=== PATIENT | female | born 1965 | race Caucasian/White ===

== ENCOUNTER → 2018-01-17 08:19 | Outpatient (CLI) | payer OTHER, SELFPAY ==
--- NOTE | 2018-01-17 08:22 | MM_ITS ---
MM Dig screening mamm BI w/CAD CAD Screening COMPARISON: MM Dig screening mamm BI w/CAD CAD Screening COMPARISON: Digital mammograms 05/21/2014 and 02/05/2013 INDICATION: There is no personal or family history of breast cancer TECHNIQUE: Standard CC and MLO images were obtained. R2 CAD reviewed. FINDINGS: Prominent diffuse heterogenic fibroglandular densities are seen in both breasts slightly more prominent left breast the right. There are scattered benign-appearing calcifications left breast. There is no suspicious lesion and there are no suspicious microcalcifications. IMPRESSION: Diffusely dense parenchymal pattern with no suspicious lesion seen BI-RADS Category: 2 Benign Finding(s) RECOMMENDED FOLLOW-UP: 1YR - 1 YEAR FOLLOW-UP (A letter has been sent to the patient regarding results of the study.)
== END ==
PROVIDERS: Family Provider Family Medicine; PCP Family Medicine; Visit Provider Family Medicine
DX: Z12.31 Encounter for screening mammogram for malignant neoplasm of breast (principal); N60.11 Diffuse cystic mastopathy of right breast; N60.12 Diffuse cystic mastopathy of left breast
CPT/HCPCS: 77067

== ENCOUNTER → 2020-01-21 10:20 | Outpatient (CLI) | payer OTHER, SELFPAY ==
[2020-01-21 11:37] LABS: Basophils % 0.5 % (0.1-2.0); Eosinophils % 0.8 % (0.1-12.0); Hematocrit 41.8 % (37.0-47.0); Hemoglobin 13.5 g/dL (12.2-16.2); Lymphocytes # 1.3 K/mm3 (0.7-4.5); Lymphocytes % 28.7 % (10-50); Mean Corpuscular HGB Conc 32.3 g/dL (31.8-35.4); Mean Corpuscular Hemoglobin 30.5 pg (27.0-31.2); Mean Corpuscular Volume 94.4 fl (81-99); Mean Platelet Volume 8.3 fl (7.4-10.4); Monocytes # 0.2 K/mm3 (0.1-1.0); Monocytes % 4.8 % (1.7-9.3); Neutrophils # 2.8 K/mm3 (1.8-7.8); Neutrophils % 65.1 % (37.0-80.0); Platelet Count 283 K/mm3 (142-424); Red Blood Count 4.43 M/mm3 (4.20-5.40); Red Cell Distribution Width 14.1 % (11.5-17.5); White Blood Count 4.3 K/mm3 (4.8-10.8)
[2020-01-21 12:04] LABS: Alanine Aminotransferase 14 U/L (12-78); Albumin Level 4.8 g/dl (3.5-5.0); Albumin/Globulin Ratio 1.5 (1.1-1.8); Alkaline Phosphatase 115 U/L (38-126); Aspartate Amino Transferase 34 U/L (14-36); Bilirubin,Total 0.5 mg/dl (0.2-1.3); Blood Urea Nitrogen 19 mg/dl (7-17); Calcium 11.1 mg/dl (8.4-10.2); Carbon Dioxide 30 mmol/L (22.0-30.0); Chloride 99 mmol/L (98-107); Chol/HDL Ratio 2.2 (1-3.5); Cholesterol 220 mg/dl (140-200); Estimated Glomerular Filt Rate 88 ml/min (>60); GFR (African American) 106 ML/MIN (>60); Globulin 3.1 g/dL (1.3-3.2); Glucose 106 mg/dl (74-100); HDL Cholesterol 100 mg/dl (40-60); Sodium 136 mmol/L (136-145); Total Protein,Serum 7.9 g/dl (6.3-8.2); Triglycerides 61 mg/dl (30-150); VLDL Cholesterol 12 mg/dL (0-40)
[2020-01-21 12:14] LABS: Direct LDL Cholesterol 101.74 mg/dL (100-129)
[2020-01-21 12:20] LABS: 25-OH Vitamin D, Total 35.4 ng/mL (30-100)
[2020-01-21 12:33] LABS: Thyroid Stimulating Hormone 2.43 uIU/mL (0.465-4.68)
[2020-01-21 22:54] LABS: Hemoglobin A1C 5.4 % (4.0-6.0)
[2020-01-22 12:45] LABS: Vitamin B12 342 pg/mL (232-1245)
== END ==
PROVIDERS: Visit Provider Nurse Practitioner Family
DX: R53.83 Other fatigue (principal); Z13.29 Encounter for screening for other suspected endocrine disorder; Z13.1 Encounter for screening for diabetes mellitus
CPT/HCPCS: 36415; 80053; 80061; 82306; 82607; 83036; 84443; 85025

== ENCOUNTER → 2020-01-27 10:39 | Outpatient (CLI) | payer OTHER, SELFPAY ==
--- NOTE | 2020-01-27 10:44 | MM_ITS ---
PROCEDURE: MM DIG SCREENING MAMM BI W/CAD Digital Breast Tomosynthesis Included CLINICAL INDICATION: SCREENING There is no personal or family history of breast cancer. There has been a previous biopsy left breast for benign disease. COMPARISON: [facility] DIG MAMM-SCREEN MELISSA from 02/05/2013 [facility] DIG MAMM-SCREEN MELISSA from 05/21/2014 [facility] MM Dig screening mamm BI w/CAD from 01/17/2018 TECHNIQUE: Standard CC and MLO images and 3D Tomosynthesis was obtained. R2 CAD reviewed. FINDINGS: Scattered fibroglandular densities are seen in both breast again slightly more prominent left breast than right. There are few benign-appearing microcalcifications left breast most of which appear typical of sclerosing adenosis. There is a tiny benign-appearing nodular density outer quadrant right breast. IMPRESSION: Fibrofatty parenchyma with no suspicious lesions seen BI-RAD Category: 2 Benign Finding(s) FOLLOW-UP: 1YR 1 Year Follow-up (A letter has been sent to the patient regarding results of the study.) Dictated by: Dr. Shalom Napier MD 01/30/2020 09:[address] Shalom Napier MD in [place] 01/30/2020 09:30
== END ==
PROVIDERS: PCP Family Medicine; Visit Provider Family Medicine
DX: Z12.31 Encounter for screening mammogram for malignant neoplasm of breast (principal)
CPT/HCPCS: 77063; 77067

== ENCOUNTER 2020-11-17 17:08 | Emergency (ER) | payer BC, SELFPAY ==
[2020-11-17 17:28] VITALS: BP 125/78; PULSE 66; RESP 18; TEMP 36.5; O2SAT 98; BMI 30.6
[2020-11-17 17:59] LABS: Apearance,Urine Clear (Clear); Bilirubin,Urine Negative (Negative); Blood, Urine Negative (Negative); Color,Urine Yellow (Yellow); Glucose,Urine (UA) Negative (Negative); Ketones,Urine Negative (Negative); PH,Urine 6.5 (5.0-8.5); Protein,Urine Negative (Negative)
[2020-11-17 18:00] LABS: UTC Leukocyte Esterase,Urine 1+ (Negative); UTC Nitrate,Urine Positive (Negative); Urobilinogen,Urine 0.2 EU/dl (0.2)
--- NOTE | 2020-11-17 18:02 | HMH.EDUTC ---
[facility] [place] [facility] [place] Clinical Impression: UTI (urinary tract infection) Qualifiers: Urinary tract infection type: site unspecified Hematuria presence: without hematuria Qualified Code(s): N39.0 - Urinary tract infection, site not specified Disposition: Home, Self-Care Condition on Discharge: Good Instructions: Urinary Tract Infection, DI for Urinary Tract Infection (UTI), Nitrofurantoin, Phenazopyridine Additional Instructions: *Increase fluids. Water not Soda or Tea *Start antibiotic immediately and be sure to take as ordered for the FULL length of time although you should start to see improvement over the next 48 hours *Pyridium as needed Remember this medication will turn your urine [place]. This is normal but it will stain what ever it gets on *You should not use Pyridium for more than 48 hours. If so , follow up with your primary physician to review urine culture and ensure that antibiotic is adequate for infection *Be SURE to follow up anytime for new or worsening symptoms with your family doctor. AND in 48 hours for urine culture results with your family doctor, if you do not have a doctor then you may call back to the [facility] for urine culture results and further treatment. We do recommend that you choose and establish care with a Primary Care Physician. AND follow up with them in 10-14 days to repeat UA to ensure infection is resolved and blood no longer present *Be sure to let your PCP know that we sent urine cultures from the [facility] so they can follow up to ensure that you area the on the correct antibiotic Call your doctor office and make appointment for 48 hours (2 days from today) to follow up and get the results of your urine culture and further treatment Return if needed Make sure to follow up to make sure you are on correct medication Straight to ER if any life threatening symptoms Prescriptions: Nitrofurantoin Monohyd/M-Cryst [Macrobid 100 mg Capsule] 100 mg PO BID 10 Days #20 cap Transmission Status: Pending to [facility] Phenazopyridine HCl [Pyridium 200mg Tablet] 200 pow PO TID #6 tab Transmission Status: Pending to [facility] Referrals: Darius Blevins MD [Primary Care Provider] - As needed Time of Disposition: 18:10 Medical Decision Making - Talha Inquiry Pt receiving controlled substance: No Talha was queried for this patient: No Vital Signs: 11/17/20 17:28 Temperature 97.7 F Temperature Source Oral Pulse Rate [Right Brachial] 66 Respiratory Rate 18 Blood Pressure [Right Arm] 125/78 Blood Pressure Mean [Right Arm] 93 Blood Pressure Source [Right Arm] Automatic Cuff Blood Pressure Position [Right Arm] Sitting 02 Sat by Pulse Oximetry 98 Oxygen Delivery Method Room Air - Lab Data Lab results reviewed: Yes: I reviewed the patient's lab results. Lab Results 11/17/20 17:17: Urine Color Yellow, Urine Appearance Clear, Urine pH 6.5, Ur Specific [place] 1.020, Urine Protein Negative, Urine Glucose (UA) Negative, Urine Ketones Negative, Urine Blood Negative, Urine Nitrate Positive A, Urine Bilirubin Negative, Urine Urobilinogen 0.2, Ur Leukocyte Esterase 1+ A Orders (Tests/Meds): ORDERS Category Date Time Status Urine Culture Stat Micro 11/17/20 17:32 Ordered [facility] [place] [facility] [place]PI - General Stated complaint: possible UTI Time Seen by Provider: 11/17/20 18:02 Mode of Arrival: Ambulatory Source of Information: Patient Limitations: No Limitations Description of Symptoms (Recalled from Triage Doc. by RN): UTI symptoms, burning and frequent urination. HEENT Symptoms (Recalled from RN notes): No Resp Symptoms (Recalled from RN notes): No Skin Symptoms (Recalled from RN notes): Yes MS Symptoms (Recalled from RN notes): No Functional Status (Recalled from RN notes): wnl - History of Present Illness Provider Complaint: Patient states that she has been having burning with urination, feeling of urgency and frequency States that she had a UTI about a month ago and finished her medication
[2020-11-17 19:01] VITALS: BP 125/78; PULSE 66; RESP 18; TEMP 36.5; O2SAT 98
== END 2020-11-17 18:11 | disposition home or self-care (01) ==
PROVIDERS: Emergency Provider Nurse Practitioner; PCP Family Medicine
DX: N30.00 Acute cystitis without hematuria (principal); A49.8 Other bacterial infections of unspecified site; Z87.891 Personal history of nicotine dependence
CPT/HCPCS: 81003; 87086; 87088; 87186; 99202; G0463

== ENCOUNTER → 2021-05-27 11:42 | Outpatient (CLI) | payer BC, SELFPAY | PROVIDERS: PCP Family Medicine; Visit Provider Physician Assistant | DX: R06.83 Snoring (principal) | CPT/HCPCS: G0399 ==

== ENCOUNTER → 2021-06-14 13:31 | Outpatient (POV) | payer BC, SELFPAY | PROVIDERS: Visit Provider Dermatology | DX: Z00.00 Encounter for general adult medical examination without abnormal findings (principal) ==

== ENCOUNTER 2021-06-22 09:54 | Emergency (ER) | payer BC, SELFPAY ==
[2021-06-22 10:13] VITALS: BP 147/97; PULSE 75; RESP 19; TEMP 37.1; O2SAT 97; BMI 30.9
[2021-06-22 10:20] LABS: UTC Strep Screen (Rapid) Negative (Negative)
--- NOTE | 2021-06-22 10:40 | HMH.EDUTC ---
[facility] – [place] Disposition Clinical Impression: Bronchitis Pharyngitis Qualifiers: Pharyngitis/tonsillitis etiology: unspecified etiology Qualified Code(s): J02.9 - Acute pharyngitis, unspecified Disposition: Home, Self-Care Condition on Discharge: Good Instructions: DI for Acute Bronchitis, DI for Pharyngitis/Tonsillopharyngitis -- Adult Additional Instructions: Drink plenty of fluids. Take tylenol or ibuprofen for pain or fever. Take the medications as directed. Follow up with your regular doctor. GO TO THE ER FOR ANY WORSENING SYMPTOMS The cough medication (promethazine dm) will make you drowsy, so don't drive or operate heavy machinery after taking it. Prescriptions: Promethazine/Dextromethorphan [Promethazine-Dm Syrup] 5 ml PO Q6HP PRN #240 ml PRN Reason: Cough Transmission Status: Pending to [facility] methylPREDNISolone [Medrol] 4 mg PO DIRECTED 6 Days #21 packet Transmission Status: Pending to [facility] guaiFENesin [Mucinex 600mg tablet] 1 - 2 tab PO BIDP PRN #30 tab PRN Reason: Congestion Transmission Status: Pending to [facility] Azithromycin [Z-Eric 250mg Tab*] 250 mg PO UD DOSE PK #6 tab Transmission Status: Pending to [facility] Referrals: Darius Blevins MD [Primary Care Provider] - Time of Disposition: 10:44 Medical Decision Making - Medical Records Medical records reviewed: No: I reviewed the patient's medical records. - Talha Inquiry Pt receiving controlled substance: No Vital Signs: 06/22/21 10:13 Temperature 98.8 F Temperature Source Oral Pulse Rate [Left] 75 Respiratory Rate 19 Blood Pressure [Right Arm] 147/97 H Blood Pressure Mean [Right Arm] 113 02 Sat by Pulse Oximetry 97 - Lab Data Lab results reviewed: Yes: I reviewed the patient's lab results. Lab Results 06/22/21 10:17: Strep Scn Rapid Clinic Negative Orders (Tests/Meds): ORDERS Category Date Time Status Strep Screen Confirmation Routine Micro 06/22/21 10:17 Received [facility] [place] HPI - General Stated complaint: sore throat, cough, soa, runny nose, headache Time Seen by Provider: 06/22/21 10:40 Mode of Arrival: Ambulatory Source of Information: Patient Limitations: No Limitations Description of Symptoms (Recalled from Triage Doc. by RN): pt c/o a cough and sore throat since 06/19 HEENT Symptoms (Recalled from RN notes): Yes (sore throat) Resp Symptoms (Recalled from RN notes): Yes (cough) Skin Symptoms (Recalled from RN notes): No MS Symptoms (Recalled from RN notes): No Functional Status (Recalled from RN notes): wnl - History of Present Illness Provider Complaint: She c/o sore throat, sinus congestion and a productive cough for the past 3 days. She denies any fever or body aches. She has felt very bad also. This morning, she started having a hoarse voice also. - Related Data Previous Rx's Medication Instructions Recorded zolpidem 5 mg tablet 5 mg PO HS PRN #2 tab 06/09/21 Azithromycin [Z-Eric 250mg Tab*] 250 mg PO UD DOSE PK #6 tab 06/22/21 Promethazine/Dextromethorphan 5 ml PO Q6HP PRN #240 ml 06/22/21 [Promethazine-Dm Syrup] guaiFENesin [Mucinex 600mg tablet] 1 - 2 tab PO BIDP PRN #30 tab 06/22/21 methylPREDNISolone [Medrol] 4 mg PO DIRECTED 6 Days #21 06/22/21 packet Allergies Allergy/AdvReac Type Severity Reaction Status Date / Time Codeine Allergy Unknown Uncoded 03 17:28 Penicillin Allergy Unknown Uncoded 10/01/20 17:28 - Worker's Comp Is this a Worker's Comp case?: No [facility] History - Hepatitis A Screen Drug use history?: No High risk sexual behaviors?: No History of sexually transmitted infection?: No Currently employed?: No Childcare worker?: No Do you have indoor plumbing?: Yes Do you have electricity?: Yes Attestation statement:: This patient has been screened for Hepatitis A risk factors. I have reviewed the patient's past medical history: Yes Other Surgeries: Yes: - Social H
[2021-06-22 11:03] VITALS: BP 147/97; PULSE 75; RESP 19; TEMP 37.1
== END 2021-06-22 11:05 | disposition home or self-care (01) ==
PROVIDERS: Emergency Provider Nurse Practitioner Family; PCP Family Medicine
DX: J20.9 Acute bronchitis, unspecified (principal); J02.9 Acute pharyngitis, unspecified; Z87.891 Personal history of nicotine dependence
CPT/HCPCS: 87880; 99202; G0463

== ENCOUNTER → 2021-06-29 13:18 | Outpatient (CLI) | payer BC, SELFPAY ==
--- NOTE | 2021-06-29 13:21 | MM_ITS ---
PROCEDURE INFORMATION: Exam: MG Bilateral Screening 3D Mammography Exam date and time: 06/29/2021 1:21 PM Age: 55 years old Clinical indication: screening mammogram TECHNIQUE: Imaging protocol: Bilateral screening tomosynthesis and 2D mammography including computer-aided detection (CAD) when performed. COMPARISON: 01/27/2020, 01/17/2018, 05/21/2014, 02/05/2013 FINDINGS: MAMMOGRAPHY: Breast composition: The breast tissue is heterogeneously dense, which may obscure small masses. Mass: None. Architectural distortion: No new or suspicious architectural distortion. Calcifications: Stable benign-appearing calcifications are present. No new or suspicious cluster of microcalcifications have developed. Asymmetric density: No new or suspicious asymmetric density is present Skin thickening: None. Axillary adenopathy: None. IMPRESSION: No mammographic evidence of malignancy. Recommend annual screening mammography unless otherwise clinically indicated. ASSESSMENT: BI-RADS category 2: Benign
== END ==
PROVIDERS: PCP Family Medicine; Visit Provider Family Medicine
DX: Z12.31 Encounter for screening mammogram for malignant neoplasm of breast (principal)
CPT/HCPCS: 77063; 77067

== ENCOUNTER 2021-08-21 11:01 | Emergency (ER) | payer BC, SELFPAY ==
[2021-08-21 13:59] VITALS: BP 151/100; PULSE 76; RESP 18; TEMP 36.8; O2SAT 98; BMI 31.1
--- NOTE | 2021-08-21 14:02 | HMH.EDUTC ---
[facility] [place] Disposition Clinical Impression: Strep throat Disposition: Home, Self-Care Condition on Discharge: Good Instructions: Sore Throat, DI for COVID-19 (Suspected or Confirmed ), Preventing the Spread of Coronavirus Discharge Instructions Additional Instructions: *Monitor Temp, Over the counter Motrin or Tylenol as directed/as needed Tylenol every 4 hours and Motrin every 6 hours (as long as your family doctor has told you that you can take it) for fever or pain. and straight to ER if unable to lower temp less than 101.0 after medication given *Warm salt water gargles may help to soothe the throat *Throat Lozenges *Warm fluids like tea with honey may help to soothe the throat *Sleep elevated *Humidifier/Vaporizer Your throat swab was sent for culture. Those results are typically sent to your primary care. Be sure to follow up in 2-3 days with your family doctor/primary care physician if no improvement so they can review those result and treat if necessary. If you don?t have a primary care doctor, I recommend you get one but in the mean time, you will have to return to a walk in clinic Follow up IMMEDIATELY for new or worsening symptoms or no Noticeable improvement over the next 48-72 hours. 911 for difficulty breathing or swallowing You were tested for today for COVID19 your test result should be back in the next 24-48 hours, you may check your results on the [facility] My Health Portal if you have trouble logging on you may call [employer] support for assistance You was given a handout with instructions for Self Quarantine and Self isolation for while you wait on test results and what to do if they are positive If you are positive the Health Dept will be contacting you also Make sure to take your Vitamins Vit. C Vit D and Zinc if you can take them Prescriptions: methylPREDNISolone [Medrol 4mg tab] 4 mg PO DIRECTED #21 tab Transmission Status: Pending to [facility] Azithromycin [Z-Eric 250mg Tab] 250 mg PO DIRECTED #6 tab Transmission Status: Pending to [facility] Referrals: Darius Blevins MD [Primary Care Provider] - As needed Forms: Work/School Release Time of Disposition: 14:51 Medical Decision Making - Talha Inquiry Pt receiving controlled substance: No Talha was queried for this patient: No Vital Signs: 08/21/21 13:59 Temperature 98.2 F Temperature Source Oral Pulse Rate [Left] 76 Respiratory Rate 18 Blood Pressure [Right Arm] 151/100 H Blood Pressure Mean [Right Arm] 117 02 Sat by Pulse Oximetry 98 - Lab Data Lab results reviewed: Yes: I reviewed the patient's lab results. Lab Results 08/21/21 13:50: Group A Strep Rapid Positive A Orders (Tests/Meds): ORDERS Category Date Time Status Covid-19 Nasal PCR ([facility]) Routine Lab 08/21/21 13:50 Received Medical Decision Narrative: Patient states that she has taken azithromycin and Medrol in the past without reactions or complications [facility] [place] HPI - General Stated complaint: possible strep Time Seen by Provider: 08/21/21 14:02 Mode of Arrival: Ambulatory Source of Information: Patient Limitations: No Limitations Description of Symptoms (Recalled from Triage Doc. by RN): pt c/o a sore throat, cough and body aches x4 days. HEENT Symptoms (Recalled from RN notes): Yes (sore throat) Resp Symptoms (Recalled from RN notes): Yes (cough) Skin Symptoms (Recalled from RN notes): No MS Symptoms (Recalled from RN notes): No Functional Status (Recalled from RN notes): wnl - History of Present Illness Provider Complaint: Patient states that she has been having sore throat, body aches and headache for about 4 days States that she thinks she may have strep throat so she came in to get tested - Related Data Previous Rx's Medication Instructions Recorded zolpidem 5 mg tablet 5 mg PO HS PRN #2 tab 06/09/21 Azithromycin [Z-Eric 250mg Tab*] 250 mg PO UD DOSE PK #6 tab 06/22/21 Promethazine/Dextromethorphan 5 ml PO Q6HP PRN #240 ml 1
[2021-08-21 14:48] LABS: Strep Scrn Group A (Rapid) Positive (Negative)
[2021-08-21 14:55] VITALS: BP 151/100; PULSE 76; RESP 18; TEMP 36.8
[2021-08-21 16:54] LABS: UTC Influenza A Antigen Negative (Negative); UTC Influenza B Antigen Negative (Negative)
== END 2021-08-21 14:56 | disposition home or self-care (01) ==
PROVIDERS: Emergency Provider Nurse Practitioner; PCP Family Medicine
DX: J02.0 Streptococcal pharyngitis (principal); Z87.891 Personal history of nicotine dependence; U07.1 COVID-19
CPT/HCPCS: 87430; 87804; 99203; C9803; G0463; U0003; U0005

== ENCOUNTER 2022-07-30 11:02 | Emergency (ER) | payer BC, SELFPAY ==
[2022-07-30 11:35] VITALS: BP 144/84; PULSE 88; RESP 20; TEMP 36.7; O2SAT 99; BMI 29.6
--- NOTE | 2022-07-30 11:37 | EXP.UTC ---
Discharge Plan Disposition Patient Disposition: Home, Self-Care Condition: Good Prescriptions Prescriptions: New amoxicillin [amoxicillin] 875 mg tablet 875 mg PO Q12H Qty: 20 0RF benzonatate [benzonatate] 100 mg capsule 100 mg PO TIDP PRN (Reason: Cough) Qty: 30 0RF methylprednisolone 4 mg Tablets,Dose Pack 4 mg PO DIRECTED Qty: 21 0RF No Action zolpidem [Ambien] 5 mg tablet 5 mg PO HS PRN (Reason: pre PSG) Qty: 2 0RF Rx Instructions: Bring medication to sleep lab, notify electromyographic technician you have it. Take one tablet when directed. Repeat second tablet if needed for insomnia promethazine-DM 120 ML syrup 5 ml PO Q6HP PRN (Reason: Cough) Qty: 240 0RF azithromycin 250 MG tablet 250 mg PO UD DOSE PK Qty: 6 0RF Rx Instructions: Take two (2) tablets today, then one (1) tablet days #2 thru #5 methylprednisolone 4 MG tablets,dose pack 4 mg PO DIRECTED 6 Days Qty: 21 0RF guaifenesin 600 MG tablet extended release 12hr 1 - 2 tab PO BIDP PRN (Reason: Congestion) Qty: 30 0RF azithromycin 250 MG tablet 250 mg PO DIRECTED Qty: 6 0RF Rx Instructions: Take two (2) tablets on day #1, then one (1) tablet day #2 thru #5 methylprednisolone 4 MG tablet 4 mg PO DIRECTED Qty: 21 0RF Rx Instructions: Take as directed on package instructions Referrals Follow up/Referrals: Darius Blevins MD [Primary Care Provider] - See instructions Activity Restrictions/Add. Instructions Additional Instructions/Restrictions: Drink plenty of fluids. Take tylenol or ibuprofen for pain or fever. Take the medications as directed. Follow up with your regular doctor. GO TO THE ER FOR ANY WORSENING SYMPTOMS Don't start the oral steroids until tomorrow, since you had the shot here today. Clinical Impressions Clinical Impression: Bronchitis, Sinusitis Instructions Patient Instructions: DI for Sinusitis, DI for Acute Bronchitis Discharge ED Provider: Nadir Wynne [facility] [place] General Stated complaint: Sore throat,cough Time Seen by Provider: 07/30/22 11:37 History of Present Illness Provider Complaint: She states that for the past 5 days she has had sinus congestion, chest congestion, productive cough, and malaise. She denies fever/chills/body aches. She took a home covid-19 test yesterday and it was negative. Related Data Previous Rx's Medication Instructions Recorded zolpidem 5 mg tablet (Ambien) 5 mg PO HS PRN pre PSG #2 tabs 06/09/21 azithromycin 250 mg tablet 250 mg PO UD DOSE PK #6 tabs 06/22/21 guaifenesin 600 mg tablet, 1 - 2 tab PO BIDP PRN Congestion 06/22/21 extended release 12 hr #30 tabs methylprednisolone 4 mg tablets in 4 mg PO DIRECTED 6 days #21 06/22/21 a dose pack packets promethazine-DM 6.25 mg-15 mg/5 mL 5 ml PO Q6HP PRN Cough #240 mL 06/22/21 oral syrup azithromycin 250 mg tablet 250 mg PO DIRECTED #6 tabs 08/21/21 methylprednisolone 4 mg tablet 4 mg PO DIRECTED #21 tabs 08/21/21 amoxicillin 875 mg tablet 875 mg PO Q12H #20 tabs 07/30/22 benzonatate 100 mg capsule 100 mg PO TIDP PRN Cough #30 caps 07/30/22 methylprednisolone 4 mg tablets in 4 mg PO DIRECTED #21 tabs 07/30/22 a dose pack Allergies Allergy/AdvReac Type Severity Reaction Status Date / Time Codeine Allergy Unknown Uncoded 10/01/20 17:28 Penicillin Allergy Unknown Uncoded 10/01/20 17:28 [facility] Disclaimer: The information contained in this section may have been updated after the patient was seen, as this information can be updated by other users. Social History Smoking Status: Former smoker alcohol intake: current substance use type: denies use current occupational status: employed Travel in the last 8 weeks: None household members: spouse housing: house ROS Obtained: Yes All systems reviewed & no additional complaints except as documented Constitutional Co
[2022-07-30 11:50] LABS: UTC Strep Screen (Rapid) Negative (Negative)
[2022-07-30 11:51] LABS: UTC Influenza A Antigen Negative (Negative); UTC Influenza B Antigen Negative (Negative)
[2022-07-30 12:26] VITALS: BP 144/84; PULSE 88; RESP 20; TEMP 36.7; O2SAT 99
== END 2022-07-30 12:30 | disposition home or self-care (01) ==
PROVIDERS: Emergency Provider Nurse Practitioner Family; PCP Family Medicine
DX: J40 Bronchitis, not specified as acute or chronic (principal); J32.9 Chronic sinusitis, unspecified
CPT/HCPCS: 87804; 87880; 96372; 99212; 99213; G0463

== ENCOUNTER → 2023-04-04 16:17 | Outpatient (CLI) | payer BC, SELFPAY ==
--- NOTE | 2023-04-04 16:21 | MM_ITS ---
PROCEDURE INFORMATION: Exam: MG Bilateral Screening 3D Mammography Exam date and time: 04/04/2023 4:08 PM Age: 57 years old Clinical indication: Screening mammogram TECHNIQUE: Imaging protocol: Bilateral Screening tomosynthesis and 2D mammography including computer-aided detection (CAD) when performed. COMPARISON: 1. MG MM DIG SCREENING MAMM BI W/CAD 06/29/2021 1:18 PM 2. MG MM DIG SCREENING MAMM BI W/CAD 01/27/2020 10:49 AM 3. MG [facility] MM Dig screening mamm BI w/CAD 01/17/2018 8:32 AM 4. MG DMSB DIG MAMM-SCREEN MELISSA 05/21/2014 2:29 PM FINDINGS: MAMMOGRAPHY: Breast composition: The breast is heterogeneously dense, which may obscure small masses. Mass: None. Architectural distortion: No new or suspicious architectural distortion. Calcifications: No new or suspicious calcifications are present Asymmetric density: No new or suspicious asymmetric density is present Skin thickening: None. Axillary adenopathy: None. IMPRESSION: No mammographic evidence of malignancy. Recommend annual screening mammography unless otherwise clinically indicated. ASSESSMENT: BI-RADS category 1: Negative
== END ==
PROVIDERS: PCP Family Medicine; Visit Provider Family Medicine
DX: Z12.31 Encounter for screening mammogram for malignant neoplasm of breast (principal)
CPT/HCPCS: 77063; 77067

== ENCOUNTER 2023-07-17 10:20 | Day surgery (SDC) | payer BC, SELFPAY ==
[2023-07-16 10:02] VITALS: BMI 30.2
[2023-07-17] VITALS (10 sets, daily range): BP systolic 79–150; BP diastolic 53–97; PULSE 58–78; RESP 16–20; TEMP 36.3–36.4; O2SAT 95–100
--- NOTE | 2023-07-17 10:58 | P.PNANES_ITS ---
[facility] Disclaimer: The information contained in this section may have been updated after the patient was seen, as this information can be updated by other users. Medical History delivery delivered Surgical History History of hernia repair Family History Other Alcoholism Cancer Diabetes FHx: mental illness Hyperlipidemia Hypertension Stroke Substance abuse Social History Smoking Status: Former smoker alcohol intake: current substance use type: denies use current occupational status: employed Travel in the last 8 weeks: None household members: spouse housing: house [facility] Anesthesia Checklist Patient Identification Patient Identification: Arm Band Structural Data Admitted From: Home Planned Operative Procedure/s: Colonoscopy Consent for Planned Operative Procedure(s) Verified: Yes Verified Documents: Surgical Consent and History and Physical NPO Status Verified Time NPO: 00:00 Additional verifications Anesthesia Reactions: No Airway Assessment Mallampati Score:: Class II C-Spine Mobility Assessed: Yes TMJ Mobility Assessed: Yes Dentition: Good Dentition Neurological Assessment Level of Consciousness: Awake and Alert Anesthesia Plan Anesthesia Risk discussed: Yes Anesthesia Plan: Verified ASA Class: II Anesthesia Type: MAC
--- NOTE | 2023-07-17 11:00 | P.PCN_ITS ---
Procedure: Date: 07/17/23 Patient Date of :: 1965 Procedure Performed:: Colonoscopy Indications:: Screening Performing Provider:: Tee Peraza MD Referring Provider:: . Sedation:: Monitored anesthesia care Procedure:: After informed consent was obtained the patient was taken to the endoscopy suite. Sedation ensued after the patient was transferred to the left lateral decubitus position. Pulse, blood pressure, and oxygen saturation were monitored throughout the procedure. Digital rectal exam revealed no significant abnormality. The colonoscope was placed in position. The entire colon was eval uated. The colonoscope was carefully removed and the patient was transferred to recovery in stable condition. Please see findings and specimens below for detail. Findings:: Bowel preparation relatively fair Right-sided diverticulosis Profound spasticity/lack of relaxation Specimens:: None Recommendations:: Barium enema ordered secondary to profound spasticity/lack of relaxation Repeat colonoscopy likely within 3-5 years (pending results of barium enema) Complications:: No immediate Estimated blood obtained (mL): 0 Colonoscopy Component Colonoscopy Component Was a colonoscopy performed during today's procedure?: Yes Recommended follow up colonoscopy of at least 10 years?: No If no, follow up colonoscopy recommended in ___ years?: (See above) Reason for not recommending >/= 10 yr follow-up interval?: (See above)
--- NOTE | 2023-07-17 11:30 | FL_ITS ---
FINAL REPORT CLINICAL HISTORY: . Spasticity/lack of relaxation Fluoro time: 3.37 DAP 3990.45 FINDINGS: BARIUM ENEMA HISTORY: Incomplete colonoscopy. PROCEDURE: Single-contrast barium was introduced by gravity drip. Spot and overhead films were obtained. FINDINGS: Watch Inspector Final Movement film is unremarkable. The colon is markedly redundant, particularly on the left No constricting or obstructing lesions are identified to the level of the cecum. There is colonic diverticulosis, greater in the proximal colon. Contrast is not able to be refluxed into small bowel. IMPRESSION: 1. Markedly redundant colon. 2. Colonic diverticulosis. 3. No evidence of obstruction but contrast is not able be refluxed into small bowel. Films reviewed , interpreted and dictated by Dr. Wilkinson. Transcribed by Kelton Suarez PA-C. Reviewed, Interpreted and Dictated by Osiel Wilkinson MD Transcribed by RENETTA Gonzalez Authenticated and [facility]
--- NOTE | 2023-07-17 11:42 | SUR.PHASEII ---
1138 - pt to radiology at this time w/ staff.
--- NOTE | 2023-07-17 13:55 | PC.NURSE ---
Barium Enema results still not available. Messaged Dr. Peraza to see if pt can leave. said she can go home. Pt stable, no c/o.
== END 2023-07-17 13:59 | disposition home or self-care (01) ==
PROVIDERS: PCP Family Medicine; Visit Provider Surgery
PROC: 0DJD8ZZ Inspection of Lower Intestinal Tract, Via Natural or Artificial Opening Endoscopic (ICD-10-PCS; CPT 45378; principal; 2023-07-17 11:30)
DX: Z12.11 Encounter for screening for malignant neoplasm of colon (principal); K57.30 Diverticulosis of large intestine without perforation or abscess without bleeding
CPT/HCPCS: 45378; 74270

== ENCOUNTER 2023-08-17 17:58 | Outpatient (CLI) | payer BC, SELFPAY | END 2023-08-17 23:59 | LOC: LAB.DROPOF 17:59 | PROVIDERS: PCP Student in an Organized Health Care Education/Training Program; Visit Provider Student in an Organized Health Care Education/Training Program | DX: R35.0 Frequency of micturition (principal); B96.89 Other specified bacterial agents as the cause of diseases classified elsewhere | CPT/HCPCS: 87086 ==

== ENCOUNTER 2024-12-25 07:24 | Outpatient (CLI) | payer BC, SELFPAY ==
--- NOTE | 2024-12-25 07:30 | US_ITS ---
PROCEDURE: US TRANSVAGINAL CLINICAL INDICATION: AUB COMPARISON: No exams were available for comparison FINDINGS: Transvaginal sonographic images of the pelvis were obtained. UTERUS: 9.1cm x 6.5cmx 4.6 cm anteverted with a combined endometrial thickness of 11 mm. The endometrium appears thickened in the basalis is irregular. The endometrium appears heterogenous. There are a few small cystic areas within the endometrium. Suspicious for endometrial hyperplasia/endometrial carcinoma. Suggest endometrial sampling. Fibroid 1 measures 2.7 cm x 2.5 cm x 1.6 cm Fibroid 2 measures 1.2 cm x 1.1 cm x 1.8 cm Fibroid 3 measures 1.8 cm x 1.5 cm x 2.3 cm Fibroid 4 measures 2.4 cm x 2.7 cm x 2.1 cm LEFT OVARY: Was not visualized RIGHT OVARY: 2cmx [id number] with a volume of 3.3ml. Right ovary is seen and appears normal. Doppler flow to the right ovary is seen. There is no fluid in the cul-de-sac. IMPRESSION: 1. Anteverted, bulky uterus. There are least 4 fibroids within the uterus. The largest measures 2.7 cm. 2. The endometrium is thickened, heterogenous and has an irregular basalis. There are several cystic areas within the endometrium and this is suspicious for endometrial hyperplasia or endometrial carcinoma. Suggest endometrial sampling. 3. The left ovary is not visualized. The right ovary appears normal. 4. No fluid in the cul-de-sac. Dictated by: Dylan Velasquez MD 12/25/2024 19:41 Dylan Velasquez MD in [facility] 12/25/2024 19:41
== END 2024-12-25 23:59 | disposition home or self-care (01) ==
LOC: RAD 07:25
PROVIDERS: PCP Family Medicine; Visit Provider Obstetrics & Gynecology
DX: N85.2 Hypertrophy of uterus (principal); D25.9 Leiomyoma of uterus, unspecified; N85.8 Other specified noninflammatory disorders of uterus
CPT/HCPCS: 76830

== ENCOUNTER 2025-03-04 10:57 | Outpatient (CLI) | payer BC, SELFPAY ==
[2025-03-04 10:54] VITALS: BMI 29.7
--- NOTE | 2025-03-04 11:18 | ECG_ITS ---
APPROVED REPORT Exam: Resting ECG HR:68 bpm ECG Measurements Heart Rate 68 AXES WA 147 P 54 QRSd 83 QRS 56 QT 354 T 52 QTc 372 Conclusion SINUS RHYTHM NORMAL ECG UNCONFIRMED REPORT Electronically signed by : Guy Smiley MD 03/05/2025 09:01:25
[2025-03-04 11:45] LABS: Hematocrit 43.7 % (37.0-47.0); Hemoglobin 13.9 g/dL (12.2-16.2); Immature Granulocytes % 0.6 %; Mean Corpuscular HGB Conc 31.8 g/dL (31.8-35.4); Mean Corpuscular Hemoglobin 29.3 pg (27.0-31.2); Mean Corpuscular Volume 92.2 fl (81-99); Nucleated Red Blood Cells % 0 %; Platelet Count 270 K/mm3 (142-424); Red Blood Count 4.74 M/mm3 (4.20-5.40); Red Cell Distribution Width-SD 42.4 fL; White Blood Count 4.7 K/mm3 (4.8-10.8)
[2025-03-04 11:48] LABS: Alanine Aminotransferase 64 U/L (12-78); Albumin Level 4.6 g/dl (3.5-5.0); Albumin/Globulin Ratio 1.6 (1.1-1.8); Alkaline Phosphatase 95 U/L (38-126); Anion Gap 11.3 mEq/L (5-15); Aspartate Amino Transferase 47 U/L (14-36); Bilirubin,Total 0.3 mg/dl (0.2-1.3); Blood Urea Nitrogen 13 mg/dl (7-17); Calcium 10.5 mg/dl (8.4-10.2); Carbon Dioxide 25 mmol/L (22.0-30.0); Chloride 104 mmol/L (98-107); Creatinine Clearance Estimated 131 mL/min (50-200); Creatinine,Serum 0.60 mg/dl (0.52-1.04); Estimated Glomerular Filt Rate 103 ml/min (>60); GFR (African American) 124 ML/MIN (>60); Globulin 2.9 g/dL (1.3-3.2); Glucose 86 mg/dl (74-100); Potassium 4.3 mmoL/L (3.5-5.1); Sodium 136 mmol/L (136-145); Total Protein,Serum 7.5 g/dl (6.3-8.2)
[2025-03-04 12:43] LABS: HCG Qualitative, Serum Negative (Negative)
== END 2025-03-04 23:59 | disposition home or self-care (01) ==
LOC: PREOP 10:58
PROVIDERS: PCP Family Medicine; Visit Provider Obstetrics & Gynecology
DX: Z01.810 Encounter for preprocedural cardiovascular examination (principal); Z01.812 Encounter for preprocedural laboratory examination
CPT/HCPCS: 80053; 84703; 85025; 93005

== ENCOUNTER → 2025-03-11 06:02 | Day surgery (SDC) | payer BC, SELFPAY ==
--- NOTE | 2025-03-04 11:22 | SUR.PREOP ---
Pt instructed to hold Monjaro until after procedure and clear liquids 24 hours prior to procedure
[2025-03-05 08:35] VITALS: BMI 29.7
[2025-03-11] VITALS (13 sets, daily range): BP systolic 124–141; BP diastolic 61–91; PULSE 61–98; RESP 14–18; TEMP 36.2–43; O2SAT 97–100
[2025-03-11] MEDS: LACTATED RINGERS 1000ML 1,000 ML 25 ML IV (06:21)
[2025-03-11] MEDS: CELECOXIB 100MG CAPSULE 400 MG PO (06:22)
[2025-03-11] MEDS: ACETAMINOPHEN 500MG TAB 1000 MG PO (06:22)
[2025-03-11] MEDS: GABAPENTIN 600MG TABLET 600 MG PO (06:22)
[2025-03-11] MEDS: CLINDAMYCIN PHOSPHATE/D5W 900 MG/50 ML PIGGYBACK 100 MG IV (07:29)
[2025-03-11] MEDS: METRONIDAZ/SOD CHL 500 MG/100 ML PIGGYBACK 100 MG IV (08:00)
[2025-03-11] MEDS: SODIUM CHLORIDE IRRIG SOLUTION 3,000 ML 20 ML IR (08:05)
[2025-03-11] MEDS: METHYLENE BLUE 0.5% 10ML AMPULE 25 MG IV (08:05)
[2025-03-11] MEDS: LIDOCAINE 1% W/EPI 1:100,000 20ML VIAL 20 ML IJ (08:15)
--- NOTE | 2025-03-11 11:01 | P.PNANES_ITS ---
[facility] Anesthesia Record Part I Anesthesia Record I Intake, IV Amount: 1,550 Hydration: Adequate Estimated blood loss (mL): 100 Urine output (mL): 200 Blood Products used (#): none Blood Pressure: 127/77 SaO2: 97 Pulse Rate: 98 Airway Patency: Patent Respiratory Rate: 14 Temperature: 98.5 F Patient is:: Drowsy and Stable Stable to PACU at:: 10:55
--- NOTE | 2025-03-11 11:07 | P.PNANES_ITS ---
[facility] Disclaimer: The information contained in this section may have been updated after the patient was seen, as this information can be updated by other users. Medical History Abnormal uterine bleeding (AUB) Decreased libido Vasomotor symptoms due to menopause Surgical History History of delivery x2 History of hernia repair Family History Other Alcoholism Cancer Diabetes FHx: mental illness Hyperlipidemia Hypertension Stroke Substance abuse Social History Smoking Status: Former smoker alcohol intake: never substance use type: denies use current occupational status: employed Travel in the last 8 weeks?: None household members: spouse housing: house Have you lived/traveled outside US in past 30 days?: No Contact w/someone who lives/traveled outside US past 30 days?: No Exposure to someone with infectious disease in past 14 days?: No Do you have a fever (greater than 100.4 F or 38 C)?: No Have you tested positive for COVID-19?: No Exposed to someone with COVID-19 in past 14 days?: No Do you have a sore throat?: No Do you have a cough?: No Do you have any weakness?: No Do you have any diarrhea?: No Are you experiencing any unusual bleeding?: No Do you have any muscle aches/pain?: No Do you have any abdominal pain?: No Are you experiencing loss of taste or smell?: No [facility] Anesthesia Checklist Patient Identification Patient Identification: Arm Band and Family Structural Data Admitted From: Home Planned Operative Procedure/s: [facility] Consent for Planned Operative Procedure(s) Verified: Yes Verified Documents: Surgical Consent and History and Physical NPO Status Verified Time NPO: 00:00 Additional verifications Patient : No Anesthesia Reactions: Yes Hx Blood Transfusions: No Blood Transfusion Reaction: No Cephalosporin Allergy: Yes Previous Colonoscopy: Yes Airway Assessment Mallampati Score:: Class II C-Spine Mobility Assessed: Yes TMJ Mobility Assessed: Yes Dentition: Good Dentition Neurological Assessment Level of Consciousness: Awake, Alert, Appropriate and Follows Commands Hx Seizures: No Numbness or tingling in extremities: No Anesthesia Plan Anesthesia Risk discussed: Yes ASA Class: I Anesthesia Type: General Preoperative Comments Pre-Operative Comments: PONV
[2025-03-11] MEDS: SODIUM CHLORIDE 0.9% 25ML BAG 25 ML IV (11:10)
[2025-03-11] MEDS: PROMETHAZINE HCL 25MG/ML 1ML VIAL 6.25 MG IV (11:10)
[2025-03-11] MEDS: MORPHINE 2MG/ML SYRINGE 1 MG IV (11:20)
--- NOTE | 2025-03-11 11:33 | P.OP_ITS ---
Date of procedure: 03/11/25 Pre-op Diagnosis:: 1. Postmenopausal bleeding 2. Fibroid uterus 3. Benign thickened endometrial lining Post-op Diagnosis:: 1. Postmenopausal bleeding 2. Fibroid uterus 3. Benign thickened endometrial lining Procedure performed:: 1. Laparoscopic assisted vaginal hysterectomy 2. Bilateral salpingo-oophorectomy 3. Cystoscopy Surgeon:: Frida Olvera DO Pole Framer(s):: Dylan Velasquez MD MECH[employer]ICAL EQUIPMENT SALES ENGINEER:: Nadir Lovell Anesthesia: GETA Estimated blood loss (mL): 100 Operative findings:: Uterine EUA was significant for 8wk size uterus with irregular borders at the fundus. Grade 3 uterine descent was appreciated. No gross adnexal masses were appreciated. Laparoscopic exam revealed normal anatomy.? There was noted to be a large fibroid uterus. No ovarian masses noted. No bowel injuries on entry. There were bilateral pelvic adhesions, there were anterior wall adhesions, and dense bladder adhesions. Cystoscopy revealed brisk flow from both ureters Operative note:: Pt was taken back to the OR where GETA was obtained without difficulty. SCDs were placed and found to be working. The patient was placed in dorsal lithotomy position using yellow fin stirrups. The vagina and abdomen was prepped and draped in the normal sterile fashion. An in and out catheter was used to drain the bladder and methylene blue was instilled. Weighted speculum was inserted into the vagina to visualize the cervix. A single tooth tenaculum was used to grasp the anterior lip of the cervix and an Rahel uterine manipulator was placed. Top gloves were removed and attention was turned to the abdominal portion.? Local anesthetic with epinephrine was injected at Coleman's point. An OG tube was placed for stomach decompression. A 5 mm incision was made and abdominal entry was obtained with a blunt direct trocar. Intra-abdominal pressure of 6mmHg was observed and CO2 gas was insufflated to create a pneumoperitoneum to a pressure of 15mmHg. The patient was placed in Trendelenburg to facilitate moving the bowel out of the operative field. A second 11mm incision was made to the left, lateral to the rectus muscles with attention to avoid vasculature. Trocar introduced under direct visualization. The processes unable to be completed on the right until several adhesions were taken down secondary to the midline and right side of the abdomen being densely adherent with omentum to the anterior abdominal wall. Adhesiolysis was only completed to allow access to the pelvis. The upper abdomen still had significant adhesions noted. An 11 mm trocar was placed on the right. Brief abdominal exam revealed anatomy as described above. The left fallopian tube was grasped at the fimbriated end. The ureters were visualized bilaterally and noted to be distal from the operative field. The LigaSure coagulation device was inserted and used to clamp, coagulate, and transect the infundibulopelvic ligament. At this time the Ovary was elevated and the ureter was again noted to be distal from the operative field. The mesosalpinx was followed to the round ligament and fulgurated with the LigaSure. The round and broad ligament were serially clamped, fulgurated and transected, with attention given to stay proximal to the uterine body. The anterior and posterior leaflet of the broad ligament were and the anterior broad ligament dissection was carried out to complete a bladder flap to the midline. Attention turned to the right adnexa, fimbriated end of the fallopian tube grasped and elevated. Ureter visualized peristalsing and noted to be distal from the operative field. The IP ligament was grasped, coagulated and transected and the process listed above was repeated. The bladder flap was connected in the middle with careful sharp dissection. The bladder flap bilaterally was created sharply with minimal use of electrocautery to avoid bladder injury. There were dense adhesions which required greater than 30 minutes of adhesiolysis of the bladder. A Chow catheter was placed in the bladder and the bladder was backfilled with normal saline to display the delineation of the vesicovaginal junction/cervical fascia meeting the bladder serosa. This allowed for careful dissection to remove the bladder from the lower uterine segment and cervix. At this time the uterus was noted to be blanched and the cervix was noted to be free of bladder adhesions. Attention was turned vaginally, a weighted speculum and Shakir retractor were used to identify the cervix. Two Maher tenaculums were used to grasp the anterior and posterior lip of the cervix. 20mL of a solution made up of 0.5% Marcaine with epinephrine injected circumferentially around the cervix. Outward traction was applied to the cervix and a scalpel was used to make a circ umferential colpotomy at the cervicovaginal junction. The incision was carried down to the paracervical fascia allowing the cervix to separate from the vaginal mucosa.? Primo and Field scissors were used to initiate and complete dissection into the posterior colpotomy. A long weighted Shaun speculum was placed in the posterior colpotomy. The uterosacral ligaments were grasped with Glenner clamps, cut and suture ligated bilaterally. These were tagged to be incorporated into the vaginal cuff at a later time. Attention was turned to the anterior edge. Pickups and Metzenbaum scissors were used to initiate and complete dissection into the anterior colpotomy. A Kingston retractor was placed in the anterior colpotomy. A Glenner clamp was used to slide off the uterus, remaining proximal, clamp, cut and tied with 0 Vicryl the remaining attachments of the cardinal ligaments along with the lower branches of the uterine vessels were clamped, cut, and suture-ligated bilaterally.? The uterus, fallopian tubes, and ovaries were noted to be free of any other adhesions and was removed. The pedicals were inspected bilaterally and there was a small amount of bleeding noted near the left uterosacral ligament. This was grasped with a Jazzy and suture ligated to be made hemostatic. A moist lap sponge was placed vaginally to retract the bowel. The posterior peritoneum was fixed to the posterior vaginal cuff with a running locking stitch. 0-PDS was used to place a Skinner stitch for the culdoplasty, incorporating the bilateral uterosacral ligaments. The anterior peritoneum was grasped with an Jackie clamp and pursestringed closed. The vaginal cuff was then closed with 0 Vicryl in a running locking fashion. When cutting the vaginal cuff stitch they will call stitch was cut and unable to be tightened down to use uterosacrals to suspend the vagina. The patient had decent apical support. Hemostasis was noted. After changing gloves, the pneumoperitoneum was reestablished, laparoscope was placed and inspection of the cuff. Irrigation of the surgical site and suction reveal hemostasis, images obtained. Brief abdominal survey revealed a normal appearing liver and abdomen, except for previous described pelvic adhesions. There is a small amount of oozing from the peritoneal edge on the right, this was made for pneumostatic with 3 vascular clips. Pedicals and cuff reinspected and noted to be hemostatic.? The operative field was covered with Surgicel powder for added hemostasis. The abdominal incisions were closed with a deep single interrupted 0 Vicryl followed by a subcuticular 4-0 Monocryl and Dermabond was placed over the incision. Cystoscopy: The patient was removed from Trendelenburg. A 70degree cystoscope was inserted into the urethra. The bladder was distended with sterile water. The ge of the bladder were inspected and noted to be intact, free of any sutures, gross masses or abnormal vasculature. Air bubble was noted at the dome of the bladder. Ureteral flow was immediately noted bilaterally. Sponge, instrument and needle counts were correct x3, per nursing. Condition: stable Disposition: floor Specimens:: Uterine body, cervix, bilateral fallopian tubes and ovaries Complications:: None
[2025-03-11] MEDS: OXYCODONE 5MG IMMEDIATE RELEASE TABLET 10 MG PO (11:54)
--- NOTE | 2025-03-11 13:06 | SUR.PHASEII ---
1200: Pt up to restroom. Voided 150ml blood tinged urine.
--- NOTE | 2025-03-12 08:55 | EXP.ANES.II ---
[facility] Anesthesia Record Part II Anesthesia Record Part II Discharge Time: 11:25 Destination: Surgical Day Care (OP Surgery) PACU nurse assessment reviewed?: Yes Patient Condition:: Good Anesthesia Complications:: None Swallowing reflex intact?: Yes Airway Patency: Patent Cyanosis?: No Blood Pressure: 141/85 SaO2: 98 Respiratory Rate: 14 Pulse Rate: 80 Temperature: 97.1 F Mental Status: Alert & Oriented Pain level:: 3 Nausea and/or vomitting:: None Intake, IV Amount: 0 Hydration: Adequate
[2025-03-12 08:56] VITALS: BP 141/85; PULSE 80; RESP 14; TEMP 36.2; O2SAT 98
== END | disposition home or self-care (01) ==
PROVIDERS: PCP Family Medicine; Visit Provider Obstetrics & Gynecology
PROC: 0UT9FZZ Resection of Uterus, Via Natural or Artificial Opening With Percutaneous Endoscopic Assistance (ICD-10-PCS; CPT 52000; principal; 2025-03-11 07:30)
DX: D25.9 Leiomyoma of uterus, unspecified (principal); R93.89 Abnormal findings on diagnostic imaging of other specified body structures; N95.0 Postmenopausal bleeding; Z88.0 Allergy status to penicillin; Z88.5 Allergy status to narcotic agent; Z98.891 History of uterine scar from previous surgery
CPT/HCPCS: 52000; 58552; 86850; 96374; 96375; J0736; J1100; J1836; J1885; J2003; J2004; J2250; J2270; J2405; J2550; J2704; J2795; J3010; J7120

== ENCOUNTER 2025-03-11 08:37 | Outpatient (CLI) | payer BC, SELFPAY ==
--- OUTSIDE RECORDS SUMMARY | 2025-03-20 08:40 | XMS_ITS | Patient Health Record ---
Author Organization [facility] Nikki szymanski Billing Info Address [address] [place] [id number] Support Name Relationship Address Phone Sara Rush Guarantor Unknown [phone] Allergies Allergen (clinical drug ingredient) Drug/Non Drug Allergy documented on EMR Reaction Allergy Type Onset Date Status Penicillin rash/hives Drug Allergy Activ e Reason For Referral No Information Medications Medication SIG (Take, Route, Frequency, Duration) Notes Start Date End Date Status Naproxen 500 MG 1 tablet Orally ever y 12 hrs for 30 days 11/09/2015 Active Vitamin D 1000 UNIT 1 tablet Orally Once a day Active [place] 3 1000 MG 3 capsule Orally Onc e a day Active Citalopram Hydrobromide 20 MG 1 tablet Oral Once a day Act aung Social History Tobacco Use: Social History Observation Description Date Details (start date - stop date) Former Smoker NA - NA Tobacco Status: Question Answer Notes Patient is a former smoker Plan Of Treatment No Information Medical (General) History Medical History History ICD Code anxiety Surgical History Surgery Date(Month/Year) hernia repair 2002
== END 2025-03-11 23:59 | disposition home or self-care (01) ==
LOC: LAB.DROPOF 03-20 08:38
PROVIDERS: PCP Family Medicine; Visit Provider Obstetrics & Gynecology
DX: R69 Illness, unspecified (principal)
CPT/HCPCS: J2004